=== PATIENT | male | born 1955 | race African-American/Black ===

== ENCOUNTER 2018-08-05 16:12 | Emergency (ER) | payer BC ==
--- NOTE | 2018-08-05 16:34 | PDOC ---
Rapid Medical Evaluation Time Seen by Provider: 08/05/18 16:34 Medical Evaluation: 08/05/18 16:34 Chief complaint: Dyspnea on minimal exertion, hx CHF, mitral valve repair. Melissa is imaging aide. Pertinent physical exam findings: Tachpnea, appears dyspneic when speaking. Soft systolic murmur. Clear lungs. BP 83/58. I have ordered the following: EKG, CXR, cardiac labs Patient will proceed to the ED for further evaluation. Discharge Disposition - Diagnosis Dyspnea, Hypotension - Referrals Referrals: Mera Ness MD [Primary Care Provider] - - Patient Instructions - Post Discharge Activity
[2018-08-05 16:42] VITALS: TEMP 97.5; BMI 20.5
[2018-08-05 17:07] LABS: BASO % 0.2 % (0-2.0); EOS % 0.2 % (0-4.5); HEMATOCRIT 36.5 % (35.4-49); HEMOGLOBIN 12.7 GM/dL (11.7-16.9); LYMPH % 11.7 % (8-40); MCH 36.6 pg (25.7-33.7); MCHC 34.8 g/dl (32.0-35.9); MEAN CELL VOLUME 105.4 fl (80-96); MEAN PLT VOLUME 10.2 fl (7.5-11.1); MONO % 8.7 % (3.8-10.2); NEUT % 79.2 % (42.8-82.8); PLATELET COUNT 171 K/MM3 (134-434); RBC 3.46 M/mm3 (4.00-5.60); WHITE BLOOD COUNT 9.6 K/mm3 (4.0-10.0)
[2018-08-05 17:15] LABS: PROTHROMBIN TIME (PATIENT) 35.8 SEC (9.7-13.0)
[2018-08-05] MEDS ORDERED: FUROSEMIDE 40 MG/4 ML INJECTABLE VIAL IVPUSH ONE (17:22)
--- NOTE | 2018-08-05 17:27 | PDOC ---
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 Murillo), chronic systolic HF,s/p mitral valve repair), HLD, afib on coumadin , who presents to the emergency department with, shortness of breath. As per patient, today the patient has been experiencing exertional dyspnea with associated chills and headache. While in the ED, the patient is hypotensive He denies recent fevers, chills, headache or dizziness. He denies recent nausea , vomit, diarrhea or constipation. He denies recent dysuria, frequency, urgency or hematuria. Allergies: NKDA Timing/Duration: gone <Patsy Macias - Last Filed: 08/05/18 22:52> <Jocelyn Luque - Last Filed: 08/05/18 23:40> - General Chief Complaint: Shortness of Breath Stated Complaint: SHORTNESS OF BREATH Time Seen by Provider: 08/05/18 16:34 Past History <Patsy Macias - Last Filed: 08/05/18 22:52> - Past Medical History COPD: No HTN: Yes Hypercholesterolemia: Yes - Surgical History Cardiac Surgery: Yes (MV repair 04/27) - Suicide/Smoking/Psychosocial Hx Smoking History: Never smoked <Jocelyn Luque - Last Filed: 08/05/18 23:40> - Past Medical History Allergies/Adverse Reactions: Allergies Allergy/AdvReac Type Severity Reaction Status Date / Time No Known Allergies Allergy Verified 08/05/18 16:34 Home Medications: Ambulatory Orders Furosemide [Lasix] mg PO DAILY 08/05/18 Metoprolol Succinate [Toprol Xl -] mg PO DAILY 08/05/18 Simvastatin mg PO HS 08/05/18 Spironolactone [Aldactone] 25 mg PO DAILY 08/05/18 Warfarin Na [Coumadin] 2.5 mg PO ASDIR 08/05/18 Warfarin Sodium [Coumadin] 6 mg PO ASDIR 08/05/18 Review of Systems - Review of Systems Able to Perform ROS?: Yes Comments:: 08/05/18 18:57 GENERAL/CONSTITUTIONAL: No fever or chills. No weakness. HEAD, EYES, EARS, NOSE AND THROAT: No change in vision. No ear pain or discharge. No sore throat. GASTROINTESTINAL: No nausea, vomiting, diarrhea or constipation. GENITOURINARY: No dysuria, frequency, or change in urination. CARDIOVASCULAR: +SOB. No chest pain. RESPIRATORY: No cough, wheezing, or hemoptysis. MUSCULOSKELETAL: No joint or muscle swelling or pain. No neck or back pain. SKIN: No rash NEUROLOGIC: No headache, vertigo, loss of consciousness, or change in strength/ sensation. ENDOCRINE: No increased thirst. No abnormal weight change. HEMATOLOGIC/LYMPHATIC: No anemia, easy bleeding, or history of blood clots. ALLERGIC/IMMUNOLOGIC: No hives or skin allergy. All Other Systems: Reviewed and Negative <Patsy Macias - Last Filed: 08/05/18 22:52> *Physical Exam - Vital Signs Last Vital Signs Temp Pulse Resp BP Pulse Ox 97.5 F L 96 H 22 H 93/75 100 08/05/18 16:41 08/05/18 16:41 08/05/18 16:41 08/05/18 17:42 08/05/18 16:41 - Physical Exam Comments: 08/05/18 18:58 Constitutional: Awake, alert, oriented. No acute distress. Head: Normocephalic. Atraumatic Eyes: PERRL. EOMI. Conjunctivae are not pale. ENT: +JVD blt. Mucous membranes are moist and intact. Posterior pharynx without exudates or erythema. Uvula midline. Neck: Supple. Full ROM. No lymphadenopathy. Cardiovascular: Regular rate. Regular rhythm. S1, S2 regular. Distal pulses are 2+ and symmetric. Pulmonary/Chest: No evidence of respiratory distress. Clear to auscultation bilaterally No wheezing, rales or rhonchi. Abdominal: Soft and non-distended. There is no tenderness. No rebound, guarding or rigidity. No organomegaly. No palpable masses. Good bowel sounds. Back: No CVA tenderness. Musculoskeletal: +Trace pitting edema blt L>R. No cyanosis. No clubbing. Full range of motion in all extremities. No calf tenderness. Radial/pedal pulses are intact and 2+ bilaterally Skin: Skin is warm and dry. No petechiae. No purpura. Neurological: Alert and oriented to person, place, and time. Cranial nerves II -XII are grossly intact. Normal speech. Strength is grossly symmetric. No sensory deficits. Psychiatric: Good eye contact. Normal interaction, affect and behavior. <Patsy Macias - Last Filed: 08/05/18 22:52> - Vital Signs Last Vital Signs Temp Pulse Resp BP Pulse Ox 97.5 F L 96 H 22 H 89/53 L 100 08/05/18 16:41 08/05/18 16:41 08/05/18 16:41 08/05/18 16:41 08/05/18 16:41 <Jocelyn Luque - Last Filed: 08/05/18 23:40> Moderate Sedation - Procedure Monitoring Vital Signs: Procedure Monitoring Vital Signs Temperature 97.5 F L 08/05/18 16:41 Pulse Rate 96 H 08/05/18 16:41 Respiratory Rate 22 H 08/05/18 16:41 Blood Pressure 93/75 08/05/18 17:42 O2 Sat by Pulse Oximetry (%) 100 08/05/18 16:41 <Patsy Macias - Last Filed: 08/05/18 22:52> - Procedure Monitoring Vital Signs: Procedure Monitoring Vital Signs Temperature 97.5 F L 08/05/18 16:41 Pulse Rate 96 H 08/05/18 16:41 Respiratory Rate 22 H 08/05/18 16:41 Blood Pressure 89/53 L 08/05/18 16:41 O2 Sat by Pulse Oximetry (%) 100 08/05/18 16:41 <Jocelyn Luque - Last Filed: 08/05/18 23:40> Heart Score/ECG Review - ECG Intrepretation Comment:: 08/05/18 17:28 sinus at 92 w 1st degree av block, L axis, LBBB, lvh, no changes from prior ekg provided by Dr. Abdullahi <Jocelyn Luque - Last Filed: 08/05/18 23:40> ED Treatment Course - LABORATORY CBC & Chemistry Diagram: 08/05/18 16:42 08/05/18 16:42 - ADDITIONAL ORDERS Additional order review: Laboratory Results 08/05/18 08/05/18 16:42 16:42 PT with INR 35.80 H INR 3.00 H Sodium 136 Potassium 4.6 Chloride 100 Carbon Dioxide 28 Anion Gap 8 BUN 48 H Creatinine 2.0 H Creat Clearance w eGFR 34.03 Random Glucose 130 H Calcium 8.3 L Total Bilirubin 1.1 H AST 48 H ALT 46 Alkaline Phosphatase 128 H Creatine Kinase 79 Troponin I 0.12 H B-Natriuretic Peptide 6551.7 H Total Protein 7.6 Albumin 3.6 08/05/18 16:42 RBC 3.46 L MCV 105.4 H MCHC 34.8 RDW 15.0 D MPV 10.2 D Neutrophils % 79.2 Lymphocytes % 11.7 Monocytes % 8.7 Eosinophils % 0.2 Basophils % 0.2 - Medications Given in the ED: ED Medications Discontinued Medications Generic Name Dose Route Start Last Admin Trade Name Freq PRN Reason Stop Dose Admin Aspirin 324 mg 08/05/18 17:48 08/05/18 18:04 Asa - PO 08/05/18 17:49 324 mg ONCE ONE Administration Furosemide 80 mg 08/05/18 17:22 08/05/18 17:45 Lasix Injection - IVPUSH 08/05/18 17:23 80 mg ONCE ONE Administration <Patsy Macias - Last Filed: 08/05/18 22:52> - LABORATORY CBC & Chemistry Diagram: 08/05/18 16:42 08/05/18 16:42 - ADDITIONAL ORDERS Additional order review: Laboratory Results 08/05/18 16:42 PT with INR 35.80 H INR 3.00 H 08/05/18 16:42 RBC 3.46 L MCV 105.4 H MCHC 34.8 RDW 15.0 D MPV 10.2 D Neutrophils % 79.2 Lymphocytes % 11.7 Monocytes % 8.7 Eosinophils % 0.2 Basophils % 0.2 <Jocelyn Luque - Last Filed: 08/05/18 23:40> Medical Decision Making - Medical Decision Making 17:30 Call placed to [facility] for tele inpatient bed, awaiting call back with bed. 08/05/18 20:06 Call placed to [facility] for update on tele bed, made aware no beds available yet, awaiting call back. 08/05/18 22:11 Call placed to [facility] for update on tele bed, made aware no beds available yet, awaiting call back. 08/05/18 22:45 Call returned from [facility] transfer port reading, made aware patient has bed. Transportation ETA is an hour (11:45 pm). <Patsy Macias - Last Filed: 08/05/18 22:52> - Critical Care Time Total Critical Care Time (minutes): 35 Critical Care Statement: The care of this patient involved high complexity decision making to prevent further life threatening deterioration of the patient 's condition and/or to evaluate & treat vital organ system(s) failure or risk of failure. 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 Abdullahi at the bedside -follows with cardio at [facility] - Dr. Murillo and is currenlty in clinical trials for his amyloid cardiomyopathy -taking lasix orally at home -pt dypsnic on exertion -pt with conversational dyspnea -no cp -Dr. Abdullahi discussed with Dr. Murillo who has accepted the patient in transfer down to [facility] for admission, requests Lasix 80mg iv push -call placed to the transfer center to arrange transportation and bed placement -labs pending -cxr pending -will place on monitor -jvd on exam 08/05/18 17:28 bedside echo shows severely depressed EF, no effusion, no pleural fluid, no b lines last echo showed ef of 40%, today ef is much lower 08/05/18 17:48 trop + BNP- >6000 will give asa lasix given pending transfer 08/05/18 18:49 cxr clear family updated 08/05/18 23:40 [facility] transport here for transfer to [facility]. <Jocelyn Luque - Last Filed: 08/05/18 23:40> *DC/Admit/Observation/Transfer - Attestations Scribe Attestion: 08/05/18 18:58 Documentation prepared by Patsy Macias, acting as certified medical coder for Jocelyn Luque DO. <Patsy Macias - Last Filed: 08/05/18 22:52> - Transfer to Acute Care Facility Receiving Facility: [facility] Accepting Physician:: Dr. Murillo - Attestations Physician Attestion: 08/05/18 17:27 I, Dr. Jocelyn Luque, DO, attest that this document has been prepared under my direction and personally reviewed by me in its entirety. I further attest, that it accurately reflects all work, treatment, procedures and medical decision -making performed by me. <Jocelyn Luque - Last Filed: 08/05/18 23:40> Diagnosis at time of Disposition: Dyspnea, Hypotension, Heart failure, Elevated troponin I level - Discharge Dispostion Disposition: TRANSFER ACUTE CARE/OTHER HOSP Condition at time of disposition: Guarded - Referrals Referrals: Mera Ness MD [Primary Care Provider] - - Patient Instructions - Post Discharge Activity
[2018-08-05] MEDS ORDERED: FUROSEMIDE 40 MG/4 ML INJECTABLE VIAL ONE (17:28)
[2018-08-05 17:32] LABS: ALBUMIN 3.6 g/dl (3.4-5.0); ALK PHOS 128 U/L (45-117); ANION GAP 8 MMOL/L (8-16); BILIRUBIN,TOTAL 1.1 mg/dL (0.2-1); BLOOD UREA NITROGEN 48 mg/dL (7-18); CALCIUM 8.3 mg/dL (8.5-10.1); CHLORIDE 100 mmol/L (98-107); CO2 28 mmol/L (21-32); GLUCOSE,RANDOM 130 mg/dL (74-106); N-TERMINAL BNP 6551.7 pg/ml (5-125); POTASSIUM 4.6 mmol/L (3.5-5.1); SGOT/AST 48 U/L (15-37); SGPT/ALT 46 U/L (13-61); SODIUM 136 mmol/L (136-145); TOT PROT 7.6 g/dl (6.4-8.2)
--- NOTE | 2018-08-05 17:36 | CON.CARD ---
Consult Consult Specialty:: Cardiology Referred by:: ER Reason for Consultation:: shortness of breath - History of Present Illness Chief Complaint: shortness of breath History of Present Illness: 62M h/o amyloidosis, chronic systolic HF, severe MR s/p MV repair, HLD, afib on coumadin p/w shortness of breath. Sees Dr. Torres for cardio here and Dr. Benjamin Murillo for heart failure at [place]. Had been feeling well, weight decreasing on lasix at home but in the last 1-2 days has worsening dyspnea on exertion, orthopnea. No chest pain, edema, palpitations. - Smoking History Smoking history: Never smoked Home Medications - Allergies Allergies/Adverse Reactions: Allergies Allergy/AdvReac Type Severity Reaction Status Date / Time No Known Allergies Allergy Verified 08/05/18 16:34 - Home Medications Home Medications: Ambulatory Orders Furosemide [Lasix] mg PO DAILY 08/05/18 Metoprolol Succinate [Toprol Xl -] mg PO DAILY 08/05/18 Simvastatin mg PO HS 08/05/18 Spironolactone [Aldactone] 25 mg PO DAILY 08/05/18 Warfarin Na [Coumadin] 2.5 mg PO ASDIR 08/05/18 Warfarin Sodium [Coumadin] 6 mg PO ASDIR 08/05/18 Family Disease History - Family Disease History Family History: Unremarkable Review of Systems - Review of Systems Constitutional: reports: No Symptoms Eyes: reports: No Symptoms HENT: reports: No Symptoms Neck: reports: No Symptoms Cardiovascular: reports: No Symptoms Respiratory: reports: No Symptoms Gastrointestinal: reports: No Symptoms Genitourinary: reports: No Symptoms Musculoskeletal: reports: No Symptoms Integumentary: reports: No Symptoms Neurological: reports: No Symptoms Endocrine: reports: No Symptoms Hematology/Lymphatic: reports: No Symptoms Psychiatric: reports: No Symptoms Vital Signs: Vital Signs Temperature 97.5 F L 08/05/18 16:41 Pulse Rate 96 H 08/05/18 16:41 Respiratory Rate 22 H 08/05/18 16:41 Blood Pressure 89/53 L 08/05/18 16:41 O2 Sat by Pulse Oximetry (%) 100 08/05/18 16:41 Constitutional: Yes: No Distress, Calm Eyes: Yes: Conjunctiva Clear, EOM Intact HENT: Yes: Atraumatic, Normocephalic Neck: Yes: Supple, Trachea Midline Respiratory: Yes: Regular, CTA Bilaterally, SOB on Exertion Gastrointestinal: Yes: Normal Bowel Sounds, Soft Cardiovascular: Yes: Regular Rate and Rhythm JVD: Yes Heart Sounds: Yes: S1, S2 Musculoskeletal: No: Back Pain Extremities: No: Cold Edema: No Peripheral Pulses WNL: Yes Peripheral Pulses: 2+ Left Doralis Pedis, 2+ Right Dorsalis Pedis Integumentary: No: Erythema, Jaundice Neurological: Yes: Alert, Oriented Psychiatric: No: Agitated - Other Data Labs, Other Data: CBC, BMP 08/05/18 16:42 INR, PTT INR 3.00 (0.83-1.09) H 08/05/18 16:42 Assessment/Plan EKG: sinus tachycardia, LBBB echo 12/2017 EF 45-50%, RV mildly enlarged with mod reduced fn, s/p MVRepair unable to estimate RVSP, s/p TV repair, mod ID Acute systolic HF exacerbation, cardiac amyloidosis - ++ JVD, dyspnea on exertion, BNP 6551, likely CHF exacerbation - CXR pending - lasix 80 mg IV x 1 - on spironolactone, metoprolol at home, holding for hypotension - case discussed with Dr. Benjamin Murillo, heart failure at [facility], accepted for transfer to HF service Elevated trop - 0.12, no chest pain, EKG similar to prior, likely demand ischemia in setting of CHF exac - trend to peak, unlikely ACS MADDI - may be cardiorenal, last Cr 1.5 in 04/2018 ->2.0 here - lasix as above Afib - holding metoprolol given low BP and diuresing as above - cont warfarin, dose per INR goal 2-3 s/p MV repair - outpatient follow up, stable on recent echo HLD - cont statin
[2018-08-05] MEDS ORDERED: ASPIRIN 81 MG CHEWABLE TABLETS PO ONE (17:48)
[2018-08-05] MEDS ORDERED: ASPIRIN 81 MG CHEWABLE TABLETS ONE (17:53)
[2018-08-05 20:36] LABS: ANISOCYTOSIS 2+; MACROCYTOSIS 2+; PLATELET ESTIMATE ADEQUATE
[2018-08-05 22:55] VITALS: BP 98/70; PULSE 88
--- NOTE | 2018-08-06 11:56 | EKG ---
Test Reason : Blood Pressure : / mmHG Vent. Rate : 092 BPM Atrial Rate : 092 BPM P-R Int : 222 ms QRS Dur : 122 ms QT Int : 402 ms P-R-T Axes : 090 -60 148 degrees QTc Int : 497 ms SINUS RHYTHM WITH 1ST DEGREE A-V BLOCK POSSIBLE LEFT ATRIAL ENLARGEMENT LEFT AXIS DEVIATION MARKED T WAVE ABNORMALITY, CONSIDER LATERAL ISCHEMIA LEFT BUNDLE BRANCH BLOCK ABNORMAL ECG NO PREVIOUS ECGS AVAILABLE Confirmed by CARLOS DALY, LAKESHIA ([id number]) on 08/06/2018 11:56:26 AM Referred By: Confirmed By:LAKESHIA GONZALEZ MD
== END 2018-08-05 23:53 | disposition short-term general hospital (02) ==
LOC: JER 16:12
PROC: B24BZZZ Ultrasonography of Heart with Aorta (ICD-10-PCS; principal; 2018-08-05)
DX: I50.21 Acute systolic (congestive) heart failure (principal); E85.4 Organ-limited amyloidosis; I43 Cardiomyopathy in diseases classified elsewhere; I48.91 Unspecified atrial fibrillation; Z79.01 Long term (current) use of anticoagulants; E78.00 Pure hypercholesterolemia, unspecified; N17.9 Acute kidney failure, unspecified; R74.8 Abnormal levels of other serum enzymes; I05.8 Other rheumatic mitral valve diseases
CPT/HCPCS: 36415; 71045-TC-FY; 80053; 82550; 83880; 84484; 85025; 85610; 93005; 93010; 99285-25

== ENCOUNTER 2018-11-05 18:06 | Emergency (ER) | payer BC ==
--- NOTE | 2018-11-05 18:13 | PDOC ---
Rapid Medical Evaluation Time Seen by Provider: 11/05/18 18:11 Medical Evaluation: Allergies Allergy/AdvReac Type Severity Reaction Status Date / Time No Known Allergies Allergy Verified 08/05/18 16:34 11/05/18 18:12 I have performed a brief in-person evaluation of this patient. The patient presents with a chief complaint of: Sent by PMD for diarrhea x 8-10 days. Reports anorexia but drinking mostly fluids. No abd pain, n/v/f/c. Recently completed abx for a UTI (does not remember name of meds). H/o amyloidosis, afib on coumadin, HF, MVR, HLD Pertinent physical exam findings:stable and well jeannie w/ benign abd I have ordered the following:labs The patient will proceed to the ED for further evaluation. 11/05/18 18:16 Discharge Disposition - Diagnosis Diarrhea Qualifiers: Diarrhea type: unspecified type Qualified Code(s): R19.7 - Diarrhea, unspecified - Referrals - Patient Instructions - Post Discharge Activity
[2018-11-05 18:17] VITALS: TEMP 97.5; BMI 20.2
[2018-11-05 18:36] LABS: EOS % 0.9 % (0-4.5); HEMATOCRIT 37.3 % (35.4-49); HEMOGLOBIN 12.7 GM/dL (11.7-16.9); LYMPH % 18.3 % (8-40); MCHC 34.1 g/dl (32.0-35.9); MEAN CELL VOLUME 108.3 fl (80-96); MEAN PLT VOLUME 8.5 fl (7.5-11.1); MONO % 9.5 % (3.8-10.2); NEUT % 70.3 % (42.8-82.8); PLATELET COUNT 261 K/MM3 (134-434); RBC 3.44 M/mm3 (4.00-5.60); RDW 15.7 % (11.9-15.9); WHITE BLOOD COUNT 5.4 K/mm3 (4.0-10.0)
[2018-11-05 19:08] LABS: PH,URINE 5.5 (5.0-8.0); URINE APPEARANCE CLEAR; URINE BILIRUBIN NEGATIVE (NEGATIVE); URINE COLOR YELLOW; URINE GLUCOSE (UA) NEGATIVE (NEGATIVE); URINE KETONE NEGATIVE (NEGATIVE); URINE LEUK ESTERASE NEGATIVE (NEGATIVE); URINE NITRITE NEGATIVE (NEGATIVE); URINE PROTEIN NEGATIVE (NEGATIVE); URINE UROBILINOGEN 0.2 mg/dL (0.2-1.0)
[2018-11-05 19:21] LABS: ALBUMIN 3.4 g/dl (3.4-5.0); ALK PHOS 172 U/L (45-117); ANION GAP 10 MMOL/L (8-16); BILIRUBIN,TOTAL 0.9 mg/dL (0.2-1); BLOOD UREA NITROGEN 44 mg/dL (7-18); CALCIUM 8.1 mg/dL (8.5-10.1); CHLORIDE 98 mmol/L (98-107); CO2 29 mmol/L (21-32); CREATININE 1.8 mg/dL (0.55-1.3); GLUCOSE,RANDOM 142 mg/dL (74-106); POTASSIUM 3.7 mmol/L (3.5-5.1); SGOT/AST 43 U/L (15-37); SGPT/ALT 26 U/L (13-61); SODIUM 136 mmol/L (136-145); TOT PROT 7.6 g/dl (6.4-8.2)
[2018-11-05] MEDS ORDERED: SODIUM CHLORIDE 500 ML IV STA (20:10)
--- NOTE | 2018-11-05 20:20 | PDOC ---
History of Present Illness - General Chief Complaint: Diarrhea Stated Complaint: SENT BY PCP Time Seen by Provider: 11/05/18 18:11 History Source: Patient Exam Limitations: No Limitations - History of Present Illness Initial Comments: 11/05/18 20:15 Pt is a 63yo M with PMH of Amyloidosis s/p chemo 2 weeks ago, Afib (on Coumadin) , MV replacement 2015, CHF, HTN, HLD presenting to ED with complaints of diarrhea x8-10 days. Pt states that the stool is watery, has been going around 3 times per day. He denies bloody stools, tarry stool, recent travel, eating undercooked meats. He was diagnosed with a UTI and was on Bactrim but the diarrhea started before he was taking the antibiotics. He states he is drinking water but has not been eating due to lack of appetite. He states that today the stool was more formed and he only had 1 BM today. Denies abdominal pain, n/v/d, flank pain, urinary symptoms, fevers, chills, SOB, chest pain, back pain. PMD: Thi PMH: see hpi PSH: see hpi Meds: see med rec Allergies: nkda Past History - Past Medical History Allergies/Adverse Reactions: Allergies Allergy/AdvReac Type Severity Reaction Status Date / Time No Known Allergies Allergy Verified 08/05/18 16:34 Home Medications: Ambulatory Orders Furosemide [Lasix] mg PO DAILY 08/05/18 Metoprolol Succinate [Toprol Xl -] mg PO DAILY 08/05/18 Simvastatin mg PO HS 08/05/18 Spironolactone [Aldactone] 25 mg PO DAILY 08/05/18 Warfarin Na [Coumadin] 2.5 mg PO ASDIR 08/05/18 Warfarin Sodium [Coumadin] 6 mg PO ASDIR 08/05/18 Cardiac Disorders: Yes (AFIB) COPD: No CHF: Yes HTN: Yes Hypercholesterolemia: Yes Other medical history: AMYLOIDOSIS - Surgical History Cardiac Surgery: Yes (MV repair 04/27) - Immunization History Immunization Up to Date: Yes - Suicide/Smoking/Psychosocial Hx Smoking History: Never smoked Hx Alcohol Use: No Drug/Substance Use Hx: No Review of Systems - Review of Systems Constitutional: No: Chills, Fever, Night Sweats HEENTM: No: Symptoms Reported Respiratory: No: Cough, Shortness of Breath, Hemoptysis Cardiac (ROS): No: Chest Pain, Lightheadedness, Palpitations, Syncope ABD/GI: Yes: Diarrhea, Poor Appetite. No: Constipated, Nausea, Rectal Bleeding , Vomiting, Abdominal cramping, Tarry Stools : No: Burning, Dysuria, Hematuria Musculoskeletal: No: Back Pain, Joint Pain, Muscle Pain Integumentary: No: Symptoms Reported Neurological: No: Headache, Numbness, Tingling *Physical Exam - Vital Signs Last Vital Signs Temp Pulse Resp BP Pulse Ox 97.5 F L 81 18 108/67 99 11/05/18 18:13 11/05/18 18:13 11/05/18 18:13 11/05/18 18:13 11/05/18 18:13 - Physical Exam General Appearance: Yes: Appropriately Dressed, Thin. No: Apparent Distress HEENT: positive: EOMI, JASPAL, Normal ENT Inspection, Other (3 sty in L eyelid) Neck: positive: Trachea midline, Supple. negative: Lymphadenopathy (R), Lymphadenopathy (L) Respiratory/Chest: positive: Lungs Clear, Normal Breath Sounds Cardiovascular: positive: Regular Rhythm, Regular Rate, S1, S2. negative: Edema , JVD, Murmur Vascular Pulses: Carotid (R): 2+, Carotid (L): 2+, Dorsalis-Pedis (R): 2+, Doralis-Pedis (L): 2+ Gastrointestinal/Abdominal: positive: Normal Bowel Sounds, Soft. negative: Tender, Mass Musculoskeletal: negative: CVA Tenderness Extremity: positive: Normal Capillary Refill, Swelling (pitting edema up to ankles bilaterally) Integumentary: positive: Normal Color, Dry, Warm Neurologic: positive: test cell technician II-XII NML intact, Fully Oriented, Alert, Normal Mood/ Affect, Normal Response, Motor Strength 5/5 ED Treatment Course - LABORATORY CBC & Chemistry Diagram: 11/05/18 18:25 11/05/18 18:25 - ADDITIONAL ORDERS Additional order review: Laboratory Results 11/05/18 11/05/18 18:29 18:25 Sodium 136 Potassium 3.7 Chloride 98 Carbon Dioxide 29 Anion Gap 10 BUN 44 H Creatinine 1.8 H Creat Clearance w eGFR 38.30 Random Glucose 142 H Calcium 8.1 L Total Bilirubin 0.9 AST 43 H ALT 26 Alkaline Phosphatase 172 H Total Protein 7.6 Albumin 3.4 Urine Color Yellow Urine Appearance Clear Urine pH 5.5 Ur Specific Tobias 1.007 L Urine Protein Negative Urine Glucose (UA) Negative Urine Ketones Negative Urine Blood Negative Urine Nitrite Negative Urine Bilirubin Negative Urine Urobilinogen 0.2 Ur Leukocyte Esterase Negative 11/05/18 18:25 RBC 3.44 L MCV 108.3 H MCHC 34.1 RDW 15.7 MPV 8.5 D Neutrophils % 70.3 Lymphocytes % 18.3 D Monocytes % 9.5 Eosinophils % 0.9 D Basophils % 1.0 D Medical Decision Making - Medical Decision Making 11/05/18 20:48 Pt is a 63yo M with PMH of Amyloidosis s/p chemo 2 weeks ago, Afib (on Coumadin) , MV replacement 2015, CHF, HTN, HLD presenting to ED with complaints of diarrhea x8-10 days. Pt states that the stool is watery, has been going around 3 times per day. He denies bloody stools, tarry stool, recent travel, eating undercooked meats. He was diagnosed with a UTI and was on Bactrim but the diarrhea started before he was taking the antibiotics. He states he is drinking water but has not been eating due to lack of appetite. He states that today the stool was more formed and he only had 1 BM today. Denies abdominal pain, n/v/d, flank pain, urinary symptoms, fevers, chills, SOB, chest pain, back pain. Vitals: wnl PE: benign, edema up to ankles bilaterally. no abdominal tenderness, no mass ddx includes but not limited to infectious diarrhea, post chemo, viral, malabsorption labs drawn by e. wnl. ua negative for infection. given history of chf, will hydrate with 500mL ns. pt otherwise tolerating po. labs wnl, normal abdominal exam, pt tolerating po. stable for dc home. likely due to chemotherapy. pt has pmd and will f/u. given return precautions. pt agrees to plan for dc home. *DC/Admit/Observation/Transfer Diagnosis at time of Disposition: Diarrhea Qualifiers: Diarrhea type: unspecified type Qualified Code(s): R19.7 - Diarrhea, unspecified - Discharge Dispostion Disposition: HOME Condition at time of disposition: Improved Decision to Admit order: No - Referrals Referrals: Mera Ness MD [Primary Care Provider] - - Patient Instructions Printed Discharge Instructions: Diarrhea Additional Instructions: You were seen in the emergency room for diarrhea. Your blood tests are normal and you do not have a urinary tract infection. Diarrhea usually resolves on its own. Please keep yourself well hydrated and eat well balanced meals. I recommend making an appointment with your primary care doctor in the next few days. Come back to the emergency room if you start developing abdominal pain, there is blood in the stool, you continue to have diarrhea, you feel lightheaded, you have chest pain, you feel short of breath or if any new concerning symptom develops. Thank you - Post Discharge Activity
[2018-11-05 22:01] LABS: MACROCYTOSIS 2+; PLATELET ESTIMATE ADEQUATE
[2018-11-05 22:05] VITALS: BP 100/64; PULSE 74
--- NOTE | 2018-11-06 00:13 | PDOC ---
Documentation entered by Rudi Danielle SCRIBE, acting as scribe for Karin Etienne MD. Karin Etienne MD: This documentation has been prepared by the jeffibe, Rudi Danielle SCRIBE, under my direction and personally reviewed by me in its entirety. I confirm that the documentation accurately reflects all work, treatment, procedures, and medical decision making performed by me. Attending Attestation - Resident Resident Name: Sobia Oliveros - ED Attending Attestation I have performed the following: I have examined & evaluated the patient, The case was reviewed & discussed with the resident, I agree w/resident's findings & plan - HPI HPI: 11/05/18 21:41 The patient is a 63 year old male with a significant past medical history of afib, CHF, and hyperlipidemia who resents to the emergency department with diarrhea for 10 days. The patient states that he has been on chemo since august. He states that he has not been eating much but has been hydrating. It is noted that the patient was recently diagnosed with a UTI by which he was put on bactrim. He states that he had 1 bowel movement today. He denies any fever, chills, nausea, vomiting, constipation or urinary symptoms. She denies any chest pain, shortness of breath, headache or dizziness. He denies any other complaints. - Physicial Exam PE: 11/05/18 21:41 GENERAL: Awake, alert, and fully oriented, in no acute distress HEAD: No signs of trauma EYES: (+)left eyelid (top and bottom ) has 3 styes. PERRLA, EOMI, sclera anicteric, conjunctiva clear ENT: Auricles normal inspection, hearing grossly normal, nares patent, oropharynx clear without exudates. Moist mucosa NECK: Normal ROM, supple, no lymphadenopathy, JVD, or masses LUNGS: Breath sounds equal, clear to auscultation bilaterally. No wheezes, and no crackles HEART: (+)irregularly Regular rate and rhythm, normal S1 and S2, no murmurs, rubs or gallops ABDOMEN: Soft, nontender, normoactive bowel sounds. No guarding, no rebound. No masses EXTREMITIES: (+)left upper back has paraspinal healing wound ( 1cm diameter), 2+ pitting edema right greater than left. Normal range of motion. No clubbing or cyanosis. No cords, erythema, or tenderness NEUROLOGICAL: Cranial nerves II through XII grossly intact. Normal speech, normal gait SKIN: Warm, Dry, normal turgor, no rashes or lesions noted. - Medical Decision Making 11/06/18 00:42 Pt's labs are all normal; despite his dehydration, he has unchanged renal insufficiency. Pt feels better in the ER. Hydrated in the ER. This is likely a reaction to his recent chemo. Home with his .
== END 2018-11-05 21:55 | disposition home or self-care (01) ==
LOC: JER 18:06
DX: K52.1 Toxic gastroenteritis and colitis (principal); T45.1X5A Adverse effect of antineoplastic and immunosuppressive drugs, initial encounter; Y92.018 Other place in single-family (private) house as the place of occurrence of the external cause; I11.0 Hypertensive heart disease with heart failure; I50.9 Heart failure, unspecified; I48.91 Unspecified atrial fibrillation; Z79.01 Long term (current) use of anticoagulants; Z95.2 Presence of prosthetic heart valve; E78.5 Hyperlipidemia, unspecified; E85.89 Other amyloidosis
CPT/HCPCS: 36415; 80053; 81003; 85025; 99282-25; J7030